=== PATIENT | male | born 1950 | race Caucasian/White ===

== ENCOUNTER → 2016-10-04 | Outpatient (CLI) | payer MEDICARE, OTHER ==
[2016-10-04 08:27] LABS: BASOPHILS % (AUTO) 0 % (0-2); EOSINOPHILS # (AUTO) 0.2 10^3uL; EOSINOPHILS % (AUTO) 3 % (0-4); LYMPHOCYTES # (AUTO) 0.7 X10^3; MEAN CORPUSCULAR HEMOGLOBIN 28.2 PG (26.0-34.0); MEAN CORPUSCULAR HGB CONC 33.3 g/dL (31.0-37.0); MEAN CORPUSCULAR VOLUME 85 FL (80-100); MEAN PLATELET VOLUME 9.1 FL (6.0-9.5); MONOCYTES # (AUTO) 0.6 X10^3; MONOCYTES % (AUTO) 8 % (3-11); NEUTROPHILS # (AUTO) 5.5 X10^3; NEUTROPHILS % (AUTO) 79 % (51-67); PLATELET COUNT 225 10^3uL (150-450); WHITE BLOOD COUNT 6.98 10^3uL (4.0-11.0)
[2016-10-04 08:56] LABS: ALBUMIN 3.4 g/dL (3.4-5.0); ANION GAP 14.3 MEQ/L (3-15); MAGNESIUM* 2.3 mg/dL (1.6-2.3); TOTAL PROTEIN 6.5 g/dL (6.4-8.5)
[2016-10-04 09:29] LABS: CLARITY,URINE Clear; GLUCOSE, URINE (UA) Negative (Negative); LEUKOCYTE ESTERASE ,URINE Negative (Negative); PH,URINE 6.5 (5.0 - 8.0)
[2016-10-04 09:31] LABS: BILIRUBIN,URINE 1+ (Negative); COLOR,URINE Dark Yellow
== END ==
LOC: LAB 08:13
PROVIDERS: ATTEND Family Medicine
DX: R06.00 Dyspnea, unspecified (principal); I49.8 Other specified cardiac arrhythmias; R79.89 Other specified abnormal findings of blood chemistry; E78.2 Mixed hyperlipidemia; D50.8 Other iron deficiency anemias; N39.0 Urinary tract infection, site not specified; E13.65 Other specified diabetes mellitus with hyperglycemia; E83.42 Hypomagnesemia; Z12.5 Encounter for screening for malignant neoplasm of prostate; E03.4 Atrophy of thyroid (acquired)
CPT/HCPCS: 36415; 71020; 80053; 80061; 81003; 83036; 83735; 84436; 84443; 85025; 93005; G0103; 84153

== ENCOUNTER → 2017-01-19 | Outpatient (CLI) | payer MEDICARE, OTHER ==
--- NOTE | 2017-01-19 11:02 | Diagnostic Imaging Report ---
INDICATION: Dyspnea and weakness starting Tuesday. Shortness of air. EXAMINATION: Two-view chest on 01/19/2017. COMPARISON: 10/04/2016. FINDINGS: The heart is enlarged. The pulmonary vasculature is mildly congested. Bibasilar atelectasis or infiltrates are noted. No pneumothorax. IMPRESSION: 1. Cardiomegaly with pulmonary vascular congestion. 2. Bibasilar atelectasis versus infiltrate. Followup recommended. Dictated by: Dictated on workstation # [id number]
[2017-01-23 07:28] LABS: ANION GAP 16.4 MEQ/L (3-15)
[2017-01-23 07:30] LABS: BUN/CREATININE RATIO 18 (10-20)
== END ==
LOC: RAD 09:16
PROVIDERS: ATTEND Family Medicine
DX: R06.00 Dyspnea, unspecified (principal); R79.89 Other specified abnormal findings of blood chemistry; I51.7 Cardiomegaly
CPT/HCPCS: 36415; 71020; 80048; 82565; 84484; 84520; 85379; 93005

== ENCOUNTER → 2017-01-25 | Outpatient (CLI) | payer MEDICARE, OTHER ==
[2017-01-25 16:35] LABS: ANION GAP 15.6 MEQ/L (3-15)
== END ==
LOC: LAB 15:52
PROVIDERS: ATTEND Family Medicine
DX: R79.89 Other specified abnormal findings of blood chemistry (principal)
CPT/HCPCS: 36415; 80048